=== PATIENT | male | born 1950 | race Caucasian/White ===

== ENCOUNTER 2021-10-20 15:18 | Emergency (ER) | payer MEDICARE ==
[2021-10-20] MEDS ORDERED: Lidocaine 1% (PF) 30 ML VIAL ONE (15:52)
[2021-10-20] MEDS ORDERED: Bupivacaine PF 0.5% 30 ML VIAL ONE (15:52)
[2021-10-20] MEDS ORDERED: Bacitracin 1 PK ONE (15:56)
[2021-10-20] MEDS ORDERED: Cephalexin 500 MG CAP ONE (15:56)
== END 2021-10-20 18:25 | disposition home or self-care (01) ==
LOC: MADERS 15:18
DX: S61.210A Laceration without foreign body of right index finger without damage to nail, initial encounter (principal); I10 Essential (primary) hypertension; E78.5 Hyperlipidemia, unspecified; E78.00 Pure hypercholesterolemia, unspecified; W27.8XXA Contact with other nonpowered hand tool, initial encounter; Z86.73 Personal history of transient ischemic attack (TIA), and cerebral infarction without residual deficits
CPT/HCPCS: 12002; J2001; S0020